=== PATIENT | female | born 1995 | race Caucasian/White ===

== ENCOUNTER 2022-02-07 12:45 | Emergency (ER) | payer MEDICAID ==
[~2022-02-07] VITALS: Ht 160 cm; Wt 66.0 kg
[2022-02-07 12:52] VITALS: BP 139/86
== END 2022-02-07 17:31 | disposition home or self-care (01) ==
LOC: ER 13:05
DX: R00.2 Palpitations (principal)
CPT/HCPCS: 81025; 93005; 99283